=== PATIENT | female | born 1955 | race American Indian/Alaskan Native ===

== ENCOUNTER 2017-09-07 12:12 | Outpatient (CLI) | payer BC, OTHER | END 2017-09-07 12:13 | disposition home or self-care (01) | LOC: VAS 12:12 | PROVIDERS: ATTEND Podiatrist Foot & Ankle Surgery | DX: M79.662 Pain in left lower leg (principal); M79.89 Other specified soft tissue disorders ==

== ENCOUNTER 2018-04-27 08:45 | Outpatient (CLI) | payer BC ==
--- NOTE | 2018-04-27 16:57 | Mammography Report ---
BILATERAL DIGITAL SCREENING MAMMOGRAM with CAD: 04/27/18 08:45:00 CLINICAL: Routine screening. COMPARISON:02/24/14 FINDINGS: The breasts are almost entirely fatty. No mass, architectural distortion or suspicious calcifications. IMPRESSION: No mammographic evidence of malignancy. BI-RADS CATEGORY: 2 -- Benign RECOMMENDATION: Routine mammographic screening in one year. COMMENT: Patient follow-up letters are generated by our [employer] application.
== END 2018-04-27 08:46 | disposition home or self-care (01) ==
LOC: SPVWC 08:45
PROVIDERS: ATTEND Family Medicine
DX: Z12.31 Encounter for screening mammogram for malignant neoplasm of breast (principal); I10 Essential (primary) hypertension; E78.00 Pure hypercholesterolemia, unspecified; K21.9 Gastro-esophageal reflux disease without esophagitis; Z87.891 Personal history of nicotine dependence
CPT/HCPCS: 77067

== ENCOUNTER 2018-07-08 10:28 | Outpatient (CLI) | payer BC | END 2018-07-08 10:29 | disposition home or self-care (01) | LOC: VAS 10:28 | PROVIDERS: ATTEND Podiatrist Foot & Ankle Surgery | DX: M79.89 Other specified soft tissue disorders (principal); M79.662 Pain in left lower leg ==

== ENCOUNTER 2019-11-16 05:37 | Observation (INO) | payer BC ==
[2019-11-15 10:57] LABS: Basophils % (Auto) 0.6 % (0.0-1.8); Eosinophils # (Auto) 0.2 K/mm3 (0.0-0.4); Hematocrit 41.4 % (30.3-42.9); Hemoglobin 13.2 gm/dl (10.1-14.3); Lymphocytes # (Auto) 1.9 K/mm3 (1.2-5.4); Lymphocytes % (Auto) 41.5 % (13.4-35.0); Mean Corpuscular HGB Conc 32 % (30-34); Mean Corpuscular Volume 79 fl (79-97); Monocytes # (Auto) 0.3 K/mm3 (0.0-0.8); Monocytes % (Auto) 7.5 % (0.0-7.3); Platelet Count 242 K/mm3 (140-440); Red Blood Count 5.24 M/mm3 (3.65-5.03); Red Cell Distribution Width 16.1 % (13.2-15.2)
--- NOTE | 2019-11-15 11:02 | Anesthesia Consultation ---
Anesthesia Consult and Med Hx Date of service: 11/16/19 - Airway Anesthetic Teeth Evaluation: Good, Partials (upper) ROM Head & Neck: Adequate Mental/Hyoid Distance: Adequate Mallampati Class: Class II Intubation Access Assessment: Probably Good - Pre-Operative Health Status ASA Pre-Surgery Classification: ASA2 Proposed Anesthetic Plan: General - Pulmonary Hx Smoking: Yes (Former) Hx Sleep Apnea: No (AMBER PRE SCREEN HIGH RISK) - Cardiovascular System Hx Hypertension: Yes - Central Nervous System Hx Neuromuscular Disorder: Yes (Neuropathy) Hx Back Pain: Yes (NECK AND BACK PAIN. Limits activity greatly) Hx Psychiatric Problems: No - Gastrointestinal Hx Gastroesophageal Reflux Disease: Yes - Endocrine Hx Non-Insulin Dependent Diabetes: Yes - Other Systems Hx Cancer: No - Additional Comments Anesthesia Medical History Comments: +Medical Clearance
[2019-11-15 11:17] LABS: BUN/Creatinine Ratio 19; Blood Urea Nitrogen 13 mg/dL (7-17); Calcium 10.1 mg/dL (8.4-10.2); Hemolysis Index 6
[~2019-11-16 05:37] MED LIST: ACETAMINOPHEN 500 MG TAB PO SCH; CELECOXIB 200 MG CAP PO NR; GABAPENTIN 300 MG CAP PO NR; LACTATED RINGERS 1,000 ML IV SCH; MAGNESIUM OXIDE 400 MG TAB PO SCH; MIDAZOLAM 2 MG/2 ML INJ IV NR; fentaNYL 100 MCG/2 ML INJ IV SCH
--- NOTE | 2019-11-16 06:37 | History and Physical Report ---
History of Present Illness Date of examination: 11/16/19 Date of admission: 11/16/2019 Chief complaint: Pelvic mass History of present illness: 63-year-old with findings of a right pelvic mass likely consistent with a 5.3 cm right ovarian cyst. The patient reports having pelvic pain and discomfort. Her markers were performed that were negative. The patient has elected to undergo definitive surgical management. Past History Past Medical History: diabetes Past Surgical History: other (foot surgery and tubal ligation) Social history: single - Obstetrical History : 2 Para: 2 Hx # Term Pregnancies: 2 Number of Pregnancies: 0 Spontaneous Abortions: 0 Induced : 0 Number of Living Children: 2 Medications and Allergies Allergies Allergy/AdvReac Type Severity Reaction Status Date / Time codeine Allergy Dizziness Verified 11/10/19 17:29 adhesive tape AdvReac Hives Verified 01/07/16 12:20 Home Medications Medication Instructions Recorded Confirmed Last Taken Type Empagliflozin [Jardiance] 25 mg PO DAILY 01/07/16 11/15/19 Unknown History Gabapentin 200 mg PO TID 01/07/16 11/15/19 Unknown History Gemfibrozil [Lopid] 600 mg PO BID 01/07/16 11/15/19 Unknown History Pravastatin Sodium [Pravastatin] 40 mg PO HS 01/07/16 11/15/19 Unknown History Ubidecarenone [Co Q-10] 1 tab PO DAILY 01/07/16 11/15/19 Unknown History metFORMIN [Glucophage] 850 mg PO BID 01/07/16 11/15/19 Unknown History Aspirin [Adult Aspirin] 81 mg PO DAILY 11/15/19 11/15/19 Unknown History Ibuprofen [Motrin] 600 mg PO Q8H PRN 11/15/19 11/15/19 Unknown History Minocycline HCl 100 mg PO BID 11/15/19 11/15/19 Unknown History amLODIPine 5 mg PO DAILY 11/15/19 11/15/19 Unknown History Active Meds: Active Medications Acetaminophen (Tylenol) 1,000 mg PO ONCE ORI Stop: 11/16/19 23:00 Celecoxib (Celebrex) 400 mg PO PREOP NR Stop: 11/16/19 23:00 Fentanyl (Sublimaze) 100 mcg IV ONCE ORI Stop: 11/16/19 23:00 Gabapentin (Gabapentin) 600 mg PO PREOP NR Stop: 11/16/19 23:00 Lactated Ringer's (Lactated Ringers) 1,000 mls @ 125 mls/hr IV DIRECT ORI Magnesium Oxide (Mag-Ox) 400 mg PO ONCE ORI Stop: 11/16/19 23:00 Midazolam HCl (Versed) 2 mg IV PREOP NR Stop: 11/16/19 23:59 - Vital Signs Vital signs: Vital Signs Temp Pulse Resp BP Pulse Ox 98.7 F 88 20 134/81 100 11/15/19 10:25 11/15/19 10:25 11/15/19 10:25 11/15/19 10:25 11/15/19 10:25 Temp Pulse Resp BP Pulse Ox 98.7 F 88 20 134/81 100 11/15/19 10:25 11/15/19 10:25 11/15/19 10:25 11/15/19 10:25 11/15/19 10:25 - Physical Exam Breasts: Positive: deferred Cardiovascular: Regular rate Lungs: Positive: Clear to auscultation Abdomen: Positive: normal appearance Results Result Diagrams: 11/15/19 10:35 11/15/19 10:35 Abnormal lab results 11/15/19 11/15/19 Range/Units 10:35 10:35 RBC 5.24 H (3.65-5.03) M/mm3 MCH 25 L (28-32) pg RDW 16.1 H (13.2-15.2) % Lymph % (Auto) 41.5 H (13.4-35.0) % Prentiss % (Auto) 7.5 H (0.0-7.3) % Potassium 5.2 H (3.6-5.0) mmol/L Glucose 125 H (65-100) mg/dL All other labs normal. Assessment and Plan - Patient Problems (1) Pelvic mass Current Visit: Yes Status: Acute Plan to address problem: The patient is scheduled to undergo a robotic hysterectomy and bilateral salpingo-oophorectomy (2) Ovarian cyst Current Visit: Yes Status: Acute (3) Chronic pelvic pain in female Current Visit: Yes Status: Acute
[2019-11-16] MEDS ORDERED: ceFAZolin/Water 2 GM/20 ML 2 GM/20 ML SYRINGE IV NR (07:00)
--- NOTE | 2019-11-16 07:06 | Anesthesia Day of Surgery ---
Anesthesia Day of Surgery - Day of Surgery Patient Examined: Yes Patient H&P Reviewed: Yes Patient is NPO: Yes
[2019-11-16] MEDS ORDERED: LIDOCAINE (1%) 10 MG/1 ML VIAL 20 ML MDV ONE (07:08)
[2019-11-16] MEDS ORDERED: dexAMETHasone 4 MG/ML VIAL ONE (07:08)
[2019-11-16] MEDS ORDERED: BUPIVACAINE-EPINEPHRINE/PF 0.25%-1:200,000 (30 ML) VIAL INFILTRATI ONE (07:08)
[2019-11-16] MEDS ORDERED: NEOMY 40 MG/POLYMYXIN B 200,000 UNITS/ML (GU) AMPULE IR ONE ×2 (07:17→08:11)
[2019-11-16] MEDS ORDERED: HYDROmorphone 1 MG/1 ML INJ IV PRN (07:24)
[2019-11-16] MEDS ORDERED: PROPOFOL 200 MG/20 ML VIAL IV ONE (07:28)
[2019-11-16] MEDS ORDERED: HYDROmorphone 1 MG/1 ML INJ ONE (07:28)
[2019-11-16] MEDS ORDERED: ESMOLOL 100 MG/10 ML INJ IV ONE (07:50)
[2019-11-16] MEDS ORDERED: LIDOCAINE MPF (2%) 20 MG/1 ML VIAL 5 ML ONE (07:52)
[2019-11-16] MEDS ORDERED: ROCURONIUM 50 MG/5 ML INJ IV ONE (07:52)
[2019-11-16] MEDS ORDERED: ceFAZolin/STERILE WATER 2 GM/20 ML SYRINGE IV NR (08:00)
[2019-11-16] MEDS ORDERED: SODIUM CHLORIDE 0.9% IRRIG SOLN 2000 ML IR ONE (08:11)
[2019-11-16] MEDS ORDERED: SODIUM CHLORIDE 0.9% IRR 1,500 ML BOTTLE IR ONE (08:11)
[2019-11-16] MEDS ORDERED: dexAMETHasone 20 MG/5 ML VIAL ONE (08:59)
[2019-11-16] MEDS ORDERED: ONDANSETRON 4 MG/2 ML INJ ONE (08:59)
[2019-11-16] MEDS ORDERED: GLYCOPYRROLATE 0.4 MG/2 ML INJ ONE (09:14)
[2019-11-16] MEDS ORDERED: NEOSTIGMINE 10MG/10 ML INJ MDV ONE (09:14)
--- NOTE | 2019-11-16 09:24 | Operative Report ---
Operative Report Operative Report: Date of surgery: 11/16/2019 Preoperative diagnoses: Right adnexal mass; leiomyoma Postoperative diagnoses: Same as above; pelvic adhesive disease Procedure: Robotic hysterectomy and bilateral salpingo-oophorectomy; lysis of adhesions Surgeon: Petrona Mclaughlin M.D. Seconds Inspector: Jacquie Claire Anesthesia: Gen. endotracheal anesthesia Estimated blood loss: 100 mL Pathology: Uterus, cervix, bilateral tubes and ovaries, right ovarian cyst Indication: 63-year-old with a history of right adnexal mass. The patient elected to undergo definitive surgical management. Her preoperative tumor markers were negative. Procedure: The patient was taken to the operating room and given general endotracheal anesthesia without complication. She is prepped and draped in a normal sterile fashion. A bivalve speculum was placed in the patient's vagina and a single- tooth tenaculum placed on the anterior lip of the cervix. The uterus was sounded with the uterine sound. A [employer] uterine manipulator was placed in the bivalve speculum was then removed. Attention was then turned to the patient's abdomen where a 12 millimeter supra umbilical skin incision was then made. A Veress needle was placed and peritoneal entry was verified water-filled syringe. Insufflation of the peritoneal cavity was performed with CO2 gas. The 12 mm trocar was then placed under direct visualization. An additional 8 mm trocar was placed on the patient's left and right lateral side just opposite of the s upraumbilical trocar. An additional 5 mm right lateral trocar was then placed as the accessory port. The Matthew Boyd device was used to close the fascia of the 12 mm incision. The patient was then placed in steep Trendelenburg. The da Magdi robot was then engaged. A fenestrated forcep was placed in arm 2 and a vessel sealer was placed in arm 1. The surgeon then transferred to the surgical console. Gen. survey revealed an enlarged right ovary consistent with an ovarian cyst. It was evidence of a leiomyoma at the fundus of the uterus. There were bowel adhesions to the posterior aspect of the uterus that were dense and adherent. The left ovary was adherent to the pelvic sidewall. The infundibulopelvic ligament was then isolated on the right. The vessel sealer was used to coagulate the ligament which was then transected. The tube and ovary were transected from the supply. The round ligament was then coagulated and transected also. The vesicouterine peritoneum was then entered from the patient's right side. The uterine vessels were then coagulated with the vessel sealer. The vessels were then transected . Attention was then turned to the patient's left side where the infundibulopelvic ligament and mesosalpinx were again isolated coagulated and transected. Lysis of adhesions had to be performed in order to isolate the left ovary from the right pelvic sidewall. The vesical peritoneum was then entered from the left and joined in the midline. Peritoneum was reflected off of the lower uterine segment. Uterine vessels were then coagulated and then transected. The dense and filmy adhesions of the omentum and large intestines were dissected off of the posterior cul-de-sac. The bowel was densely adherent to the posterior aspect of the uterus. Extensive lysis of adhesions had to be performed. The blood supply to the uterus was adequately contained, a posterior colpotomy was made. The V care ring was visualized. Posterior colpotomy was created with the monopolar scissors. The incision was continued circumferentially until anterior colpotomy was made. The cervix and uterus were amputated from the vaginal cuff. The uterus was then removed along with the tubes and ovaries bilaterally through the vagina and a warm laparotomy sponge was placed and maintain the pneumoperitoneum. The vaginal cuff was then closed in a running fashion with V lock suture. Irrigation of the pelvis was performed. Hemogloblast was applied to the incision. The skin was then reapproximated with 4-0 Monocryl. The tissue was sent to pathology which included the cervix, uterus, tubes and ovaries, right ovarian cyst. Of note the cyst was removed from the pelvis intact. The patient was then successfully extubated. She was then taken to the recovery room in stable condition. All sponge laps and needle counts were correct x2.
[2019-11-16] MEDS ORDERED: INSULIN REGULAR, HUMAN 100 UNITS/1 ML IV ONE (10:30)
[2019-11-16] MEDS: KETOROLAC 30 MG/1 ML INJ IV SCH ×3 (10:49→22:48)
[2019-11-16] MEDS ORDERED: MORPHINE 4 MG/1 ML INJ IV PRN (11:30)
[2019-11-16] MEDS ORDERED: ONDANSETRON 4 MG/2 ML INJ IV PRN (11:30)
[2019-11-16] MEDS ORDERED: oxyCODONE /ACETAMINOPHEN 5-325MG TAB PO PRN (11:30)
[2019-11-16] MEDS ORDERED: IBUPROFEN 600 MG TAB PO SCH (12:00)
[2019-11-16] MEDS: LACTATED RINGERS 1,000 ML IV SCH ×2 (15:37→21:21)
--- NOTE | 2019-11-16 16:07 | Post Anesthesia Evaluation ---
- Post Anesthesia Evaluation Patient Participated: Yes Airway Patent: Yes Stable Respiratory Function: Yes Nausea/Vomiting: No Temp > 96.8F: Yes Pain Manageable: Yes Adequeate Hydration: Yes Anesthesia Complications: No
[2019-11-16] MEDS: metFORMIN 850 MG TAB PO SCH (18:00)
[2019-11-16] MEDS ORDERED: ZOLPIDEM 5 MG TAB PO PRN (22:00)
[2019-11-17] MEDS: KETOROLAC 30 MG/1 ML INJ IV SCH ×2 (04:06→09:56)
[2019-11-17 04:51] LABS: Hematocrit 36.1 % (30.3-42.9); Hemoglobin 11.4 gm/dl (10.1-14.3)
[2019-11-17] MEDS: LACTATED RINGERS 1,000 ML IV SCH (06:48)
[2019-11-17 08:35] VITALS: BP 116/74
--- NOTE | 2019-11-17 08:49 | Progress Note ---
Assessment and Plan - Patient Problems (1) Pelvic mass Current Visit: Yes Status: Acute Plan to address problem: patient doing well (2) Ovarian cyst Current Visit: Yes Status: Acute (3) Chronic pelvic pain in female Current Visit: Yes Status: Acute Subjective - Subjective Date of service: 11/17/19 Interval history: Patient reports feeling well. Tolerating regular diet. Patient reports: appetite normal, voiding normally, pain well controlled Objective - Vital Signs Latest vital signs: Vital Signs Temp Pulse Resp BP BP Pulse Ox 11/17/19 08:33 98.5 F 104 H 18 116/74 98 11/17/19 06:04 98.6 F 102 H 18 126/76 100 11/17/19 00:40 98.1 F 114 H 16 108/53 11/16/19 21:20 98.8 F 114 H 18 125/67 97 11/16/19 16:00 98.4 F 111 H 18 141/83 98 11/16/19 11:19 16 11/16/19 11:15 97.6 F 108 H 16 141/84 141/84 100 11/16/19 11:05 89 14 137/89 99 11/16/19 10:55 14 11/16/19 10:50 90 13 131/86 97 11/16/19 10:49 13 11/16/19 10:35 97.9 F 90 12 139/78 97 11/16/19 10:25 13 11/16/19 10:20 92 H 12 137/79 98 11/16/19 10:05 90 13 138/79 100 11/16/19 09:50 92 H 14 133/77 96 11/16/19 09:45 90 14 137/73 97 11/16/19 09:40 101 H 14 142/81 96 11/16/19 09:36 97.6 F 89 16 141/74 95 Intake and Output 11/16/19 11/17/19 11/17/19 22:59 06:59 14:59 Intake Total 965.323 3939 Output Total 2200 Balance 716.667 -840 Intake: IV 353.679 3732 Lactated Ringers 1,000 ml 409.603 2607 @ 125 mls/hr IV DIRECT ORI Rx#:[id number] Intake, Free Water 360 Output: Urine 2200 Indwelling Catheter 2100 Void 100 Other: Total, Output Amount 100 Voiding Method Indwelling Catheter # Voids Indwelling Catheter 800 Void 1 - Exam Abdomen: Present: normal appearance, soft Incision: Present: normal - Labs Labs: Abnormal lab results 11/16/19 11/16/19 11/16/19 Range/Units 09:58 11:04 16:27 POC Glucose 242 H 220 H 163 H (70-105) 11/16/19 11/17/19 Range/Units 23:02 07:02 POC Glucose 174 H 120 H (70-105)
--- NOTE | 2019-11-17 08:51 | Discharge Summary ---
Providers - Providers Date of Admission: 11/16/19 09:25 Date of discharge: 11/17/19 Attending physician: GONZALES PRADHAN Primary care physician: BRIGITTE PATEL Hospitalization Reason for admission: other (adnexal mass) Procedure: other (robotic hysterectomy) Incision: normal Discharge diagnosis: other (Adnexal mass) Hospital course: Patient admitted the day of surgery and underwent a robotic hysterectomy. See op note. Postop uneventful Condition at discharge: Good Disposition: DC-01 TO HOME OR SELFCARE - Discharge Diagnoses (1) Pelvic mass Status: Acute (2) Ovarian cyst Status: Acute (3) Chronic pelvic pain in female Status: Acute Plan - Provider Discharge Summary Activity: no sex for 6 weeks, no heavy lifting 4 weeks, no strenuous exercise Diet: routine Instructions: routine Additional instructions: [] Smoking cessation referral if applicable(refer to patient education folder for contact #) [] Refer to [facility]'s [facility] Booklet Call your doctor immediately for: * Fever > 100.5 * Heavy vaginal bleeding ( >1 pad per hour) * Severe persistent headache * Shortness of breath * Reddened, hot, painful area to leg or breast * Drainage or odor from incision. * Keep incision clean and dry at all times and follow doctor's instructions regarding bathing/showering schedule followup in 4 weeks - Follow up plan
[2019-11-17] MEDS: metFORMIN 850 MG TAB PO SCH (09:56)
== END 2019-11-17 11:40 | disposition home or self-care (01) ==
LOC: OR 05:37 → OB 09:25
PROVIDERS: ADMIT Obstetrics & Gynecology; ATTEND Obstetrics & Gynecology
DX: N83.209 Unspecified ovarian cyst, unspecified side (principal); D21.9 Benign neoplasm of connective and other soft tissue, unspecified
CPT/HCPCS: 36415; 58571; 64450; 80048; 82962; 85014; 85018; 85025; 86850; 86900; 86901; 88305; 88307; 96374; 96375; 96376; A4217; G0378; J0690; J1100; J1170; J1885; J2250; J2405; J2704; J2710; J3010; J7120; S2900; 88309; J1815

== ENCOUNTER 2021-01-18 09:47 | Outpatient (CLI) | payer BC ==
--- NOTE | 2021-01-18 11:57 | Mammography Report ---
DIGITAL SCREENING MAMMOGRAM WITH CAD, 01/18/2021 CLINICAL INFORMATION / INDICATION: Routine screening mammography. SCREENING MAMMO TECHNIQUE: Digital bilateral 2D mammography was obtained in the craniocaudal and mediolateral obliqu e projections. This examination was interpreted with the benefit of Computer-Aided Detection analysis . COMPARISON: 02/24/2014 and 04/27/2018. FINDINGS: Breast Density: The breasts are almost entirely fatty. No dominant mass, suspicious calcifications, or architectural distortion in either breast. Benign-appearing calcifications in the subareolar region on the right are unchanged since 2013. There are a few other benign scattered calcifications bilaterally. No new abnormality is seen. IMPRESSION: No mammographic evidence of malignancy. Follow up recommendation: Routine yearly BI-RADS Category 2: Benign. A "normal" or negative report should not discourage follow up or biopsy of a clinically significant f inding. A written summary of these findings will be mailed to the patient. The patient will be entered into a mammography reporting system which will generate a reminder letter for the patient's next appointmen t at the appropriate interval. [employer] recommends yearly mammograms starting at age 40 and continuing as l richi as a woman is in good health. Breast MRI is recommended for women with an approximate 20-25% or greater lifetime risk of breast cancer, including women with a strong family history of breast or ova kay cancer or who have been treated for Hodgkin's disease. Signer Name: Sin Moyer MD Signed: 01/18/2021 11:53 AM Workstation Name: [facility]
== END 2021-01-18 09:48 | disposition home or self-care (01) ==
LOC: SPVWC 09:47
PROVIDERS: ATTEND Family Medicine
DX: Z12.31 Encounter for screening mammogram for malignant neoplasm of breast (principal); N64.89 Other specified disorders of breast
CPT/HCPCS: 77067

== ENCOUNTER 2022-06-04 14:54 | Outpatient (CLI) | payer BC | END 2022-06-04 14:55 | disposition home or self-care (01) | LOC: SPVWC 14:54 | PROVIDERS: ATTEND Family Medicine | DX: Z12.31 Encounter for screening mammogram for malignant neoplasm of breast (principal) | CPT/HCPCS: 77067 ==